=== PATIENT | male | born 1975 | race Caucasian/White ===

== ENCOUNTER 2023-08-28 08:15 | Outpatient (CLI) | payer BC, SELFPAY | END 2023-08-28 08:16 | disposition home or self-care (01) | LOC: NFLDREF 08-29 10:50 | PROVIDERS: PCP Family Medicine; Referring Provider Family Medicine; Visit Provider Family Medicine | DX: Z13.1 Encounter for screening for diabetes mellitus (principal); Z13.6 Encounter for screening for cardiovascular disorders | CPT/HCPCS: 80061; 82947 ==

== ENCOUNTER 2023-10-03 07:43 | Outpatient (CLI) | payer BC, SELFPAY ==
--- NOTE | 2023-10-03 08:34 | W.ANESCHARGE ---
Anesthesia Charges Start Date/Time Anesthesia Start Date: 10/03/23 Anesthesia Start Time: 08:32 Stop Date/Time Anesthesia Stop Date: 10/03/23 Anesthesia Stop Time: 09:04
--- NOTE | 2023-10-03 09:03 | W.ANESCHARGE ---
Anesthesia Charges Start Date/Time Anesthesia Start Date: 10/03/23 Anesthesia Start Time: 08:32 Stop Date/Time Anesthesia Stop Date: 10/03/23 Anesthesia Stop Time: 09:04
== END 2023-10-03 07:44 | disposition home or self-care (01) ==
LOC: OP CLINIC 07:43
PROVIDERS: PCP Family Medicine; Visit Provider Internal Medicine
DX: Z12.11 Encounter for screening for malignant neoplasm of colon (principal)
CPT/HCPCS: 00811; 00812; 45378; J2704

== ENCOUNTER 2024-11-23 08:00 | Outpatient (CLI) | payer OTHER, SELFPAY | END 2024-11-23 08:01 | disposition home or self-care (01) | PROVIDERS: PCP Family Medicine; Referring Provider Family Medicine; Visit Provider Family Medicine | DX: Z13.6 Encounter for screening for cardiovascular disorders (principal) | CPT/HCPCS: 80061 ==